=== PATIENT | male | born 1985 | race Caucasian/White ===

== ENCOUNTER → 2021-05-19 14:13 | Outpatient (BNVA) | payer SELFPAY | PROVIDERS: Visit Provider Family Medicine | DX: M25.461 Effusion, right knee (principal) | CPT/HCPCS: 73562 ==

== ENCOUNTER 2021-05-19 15:26 | Emergency (ER) | payer SELFPAY ==
[2021-05-19 15:37] VITALS: BP 165/88; PULSE 79; RESP 18; TEMP 37; O2SAT 98; BMI 29.2
--- NOTE | 2021-05-19 15:49 | XRR_ITS ---
PROCEDURE INFORMATION: Exam: XR Right Knee Exam date and time: 05/19/2021 3:49 PM Age: 36 years old Clinical indication: Swelling or effusion of joint; Knee; Additional info: Redness, swelling TECHNIQUE: Imaging protocol: XR Right knee. Views: 3 views. COMPARISON: CR XR knee RT 3V* [id number] 05/19/2021 2:14 PM FINDINGS: Bones/joints: There is no evidence of fracture or dislocation. There is no osseous lesion. There is no bone erosion or periosteal reaction. The joint spaces are intact. Soft tissues: Normal. XR/XR knee RT 3V* [id number] IMPRESSION: No osseous or articular abnormality
--- NOTE | 2021-05-19 15:50 | ED_ITS ---
Documented by User: [email or web address] Antoine 05/20/21 17:56 HPI - Extremity Problem General: Chief complaint: Extremity Injury, Lower Stated complaint: Redness in right leg, swelling Time Seen by Provider: 05/19/21 15:49 History of Present Illness: HPI Narrative: 36-year-old male patient comes in today with complaints of redness to the right lower leg. There is minimal to no swelling noted to the knee. Patient reports last week he hit his knee against his bed board. On Tuesday it started getting red and more tender and he went to the emergency department in [place] and was diagnosed with cellulitis. Patient reports that he has taken 6 doses of the antibiotic but continues to have some redness and discomfort to the knee so he was seen by Dr. Goodson in [place] who thought he might have gout. So, Dr. Goodson referred him to the ER for further evaluation. Patient was on clindamycin from the emergency department at [place]. Patient does report alcohol use and tobacco smoking. Patient also admits to occasional drug use. Patient denies any IV drug use. Review of Systems General: Reports: 10 or more systems reviewed and unremarkable except in HPI and below Musc: Reports: other (Right knee redness.) [facility] ED PFSH: Social History Smoking and tobacco status: current every day smoker Physical Exam Const: COMMON NORMALS: no acute distress and patient oriented x3 GENERAL APPEARANCE: cooperative HENMT: COMMON NORMALS: normocephalic and Normal external nose present HEAD & SCALP: normal to inspection and normocephalic NOSE: Normal external nose present MOUTH: Normal oral and palatal mucosa present Eye: GENERAL EYE: appearance normal, both eyes and all related structures Neck/C-Spine: COMMON NORMALS: full ROM Chest: COMMONS NORMALS: normal inspection of the chest Resp: COMMON NORMALS: normal respiratory effort EFFORT & INSPECTION: Yes able to speak in complete sentences Cardio: COMMON NORMALS: regular rate and regular rhythm RATE: regular rate RHYTHM: regular rhythm GI: COMMON NORMALS: non-tender Back/Pelvis: COMMON NORMALS: thoracic and lumbar spine normal to inspection Extremity: COMMON NORMALS: normal to inspection Neuro: COMMON NORMALS: patient oriented x3 and moves all extremities Psych: COMMON NORMALS: mental status grossly normal and cooperative Skin: NARRATIVE SKIN EXAM: Redness to the anterior right knee with extension down to the mid calf on the lateral side. Mild induration is noted to an area to the anterior right knee approximately 3 x 2 cm oval Course Vital Signs: Vital signs: Vital Signs Temperature 98.4 F 05/19/21 18:43 Pulse Rate 60 05/19/21 18:43 Respiratory Rate 16 05/19/21 18:43 Blood Pressure 160/96 05/19/21 18:43 Pulse Oximetry 99 05/19/21 18:43 MDM - Extremity (Nontraumatic) Lab Data: Labs: Lab Results 05/19/21 05/19/21 Range/Units 16:22 16:22 WBC 11.4 H (4.0-10.0) 10^3/ uL RBC 4.48 (4.1-5.3) 10^6/u L Hgb 16.3 (11.7-16.6) g/dL Hct 46.5 (42.0-52.0) % MCV 103.8 H (80-94) fl MCH 36.4 H (28.0-34.0) pg MCHC 35.1 (30.0-36.0) g/dL RDW 11.9 L (12.1-15.1) % Plt Count 153 (130-400) 10^3/c mm MPV 12.6 H (7.4-10.4) fL Neut % (Auto) 63.6 % Lymph % (Auto) 23.9 % [place] % (Auto) 9.5 % Eos % (Auto) 1.9 % Baso % (Auto) 0.7 % Neut # (Auto) 7.25 (1.8-7.7) 10^3/u L Lymph # (Auto) 2.7 (0.8-4.8) 10^3/u L [place] # (Auto) 1.1 H (0.2-0.9) 10^3/u L Eos # (Auto) 0.2 (0.0-0.8) 10^3/u L Baso # (Auto) 0.1 (0.0-0.1) 10^3/u L Nucleated RBC % (a uto) 0 % Nucleated RBCs # 0.0 /100WBC Sodium 137 (136-145) mmol/L Potassium 4.1 (3.5-5.1) mmol/L Chloride 103 (98-107) mmol/L Carbon Dioxide 21 L (22-29) mmol/L Anion Gap 17.1 (5-19) BUN 14 (6-20) mg/dL Creatinine 1.1 (0.7-1.2) mg/dL GFR Calculation 75.7 L (90-130) mL/min Glucose 92 (65-115) mg/dL Calculated Osmolal ity 284 L (285-295) mOsm/k g Uric Acid 6.7 (3.4-7.0) mg/dL Calcium 8.6 (8.5-10.5) mg/dL Total Bilirubin 0.8 (0.15-1.2) mg/dL AST 126 H (0-40) U/L ALT 183 H (0-41) U/L Alkaline Phosphata se 111 (40-130) IU/L C-Reactive Protein 15.5 H (0.0-4.9) mg/L Total Protein 8.7 (6.6-8.7) g/dL Albumin 4.3 (3.5-5.2) g/dL Globulin 4.4 (1.3-4.6) g/dL Discharge Plan Discharge Patient Disposition: Home Clinical Impression: Cellulitis Qualifiers: Site of cellulitis: extremity Site of cellulitis of extremity: lower extremity Laterality: right Qualified Code(s): L03.115 - Cellulitis of right lower limb Condition: Stable Prescriptions: New Medrol (Arturo) 4 mg tablets,dose pack See Rx Instructions .ROUTE .COMPLEX Qty: 21 RF: 0 Augmentin 500-125 mg tablet 1 tab PO BID 7 Days Qty: 14 RF: 0 Bactrim DS 800-160 mg tablet 1 tab PO BID 7 Days Qty: 14 RF: 0 colchicine 0.6 mg tablet 0.6 mg PO ONCE Qty: 3 RF: 0 No Action naproxen 500 mg tablet PO RF: 0 clindamycin HCl 300 mg capsule PO RF: 0 Discharge Orders: Discharge ED (Routine); Ordered 05/19/21 Ordered By: Jamie Aranda Discharge Diet: Regular Discharge Activity: Increase activity as tolerated Patient Instructions: Cellulitis (ED), Opioid Safety Activity Restrictions/Additional Instructions: Follow-up with medical provider as directed in 7 to 10 days reevaluation. Take medications as prescribed. Return to the ER or your medical provider if condition worsens. Please read and understand discharge instructions. Thank you for choosing [facility] for your healthcare needs today. Please realize this is an emergency room and that we are providing you with a medical screening exam and this may not be complete and all inclusive of all the testing and or work up that you may need to determine your ailment or severity of your illness. It is very important that you follow up as instructed or that you return to the Emergency Department should you have concerns or if your condition changes or worsens in any way. Sign Out Sign Out Data: Patient Sign Out occurred on 05/19/21 at 17:07. Patient's care was discussed, and care was transferred from to FLO Diaz. Coding Level of Care Code ED Operations Accountant for [place] Fwd Exam Comprehensive Documented by User: FLO Diaz 05/19/21 23:32 HPI - Extremity Problem General: Chief complaint: Extremity Injury, Lower Stated complaint: Redness in right leg, swelling Time Seen by Provider: 05/19/21 15:49 [facility] ED PFSH: Social History Smoking and tobacco status: current every day smoker Course Vital Signs: Vital signs: Vital Signs Temperature 98.4 F 05/19/21 18:43 Pulse Rate 60 05/19/21 18:43 Respiratory Rate 16 05/19/21 18:43 Blood Pressure 160/96 05/19/21 18:43 Pulse Oximetry 99 05/19/21 18:43 MDM - Extremity (Nontraumatic) MDM Narrative: Medical decision making narrative: I took over patient case from Fede Delgado [employer]EL DESIGNER at shift change. He performed the initial history physical exam lab and imaging work-up. Patient has right knee swelling and erythema that occurred couple days after injury where he hit his knee hard into an object. Patient was seen by a provider 2 days ago and he was diagnosed with cellulitis and put on clindamycin. Patient has taken 1 days worth of clindamycin and has not had any improvement. He then was seen by Dr. Goodson earlier today as well and they sent him over here to the ED to get an x-ray and to do some labs. He was suspecting either gout or cellulitis. Vitals stable and patient appears nontoxic and in no acute distress. Exam of the right knee shows erythema, warmth and tenderness to the skin. Exam findings suggestive of cellulitis. X-ray showed no acute findings. White blood cell count 11.4 and the rest of CBC and CMP were unremarkable. Patient's CRP was 15.5 and his uric acid level is normal. Patient was given a IM dose of 1 g of Rocephin while here in the ED. Patient diagnosed with cellulitis. He was discharged home with a prescription for Bactrim, Augmentin and a Medrol Dosepak to help with some of the swelling. Patient given a written prescription of hydrocodone 5/325 quantity 8 mg tablets for pain. I also sent him with a prescription for colchicine for him to take to cover possible acute gout. He was told to follow-up with his PCP in 7 to 10 days reevaluation. Return to ED precautions given. Patient understood agree with plan. Lab Data: Attestation: I reviewed the patient's lab results. Labs: Lab Results 05/19/21 05/19/21 Range/Units 16:22 16:22 WBC 11.4 H (4.0-10.0) 10^3/ uL RBC 4.48 (4.1-5.3) 10^6/u L Hgb 16.3 (11.7-16.6) g/dL Hct 46.5 (42.0-52.0) % MCV 103.8 H (80-94) fl MCH 36.4 H (28.0-34.0) pg MCHC 35.1 (30.0-36.0) g/dL RDW 11.9 L (12.1-15.1) % Plt Count 153 (130-400) 10^3/c mm MPV 12.6 H (7.4-10.4) fL Neut % (Auto) 63.6 % Lymph % (Auto) 23.9 % [place] % (Auto) 9.5 % Eos % (Auto) 1.9 % Baso % (Auto) 0.7 % Neut # (Auto) 7.25 (1.8-7.7) 10^3/u L Lymph # (Auto) 2.7 (0.8-4.8) 10^3/u L [place] # (Auto) 1.1 H (0.2-0.9) 10^3/u L Eos # (Auto) 0.2 (0.0-0.8) 10^3/u L Baso # (Auto) 0.1 (0.0-0.1) 10^3/u L Nucleated RBC % (a uto) 0 % Nucleated RBCs # 0.0 /100WBC Sodium 137 (136-145) mmol/L Potassium 4.1 (3.5-5.1) mmol/L Chloride 103 (98-107) mmol/L Carbon Dioxide 21 L (22-29) mmol/L Anion Gap 17.1 (5-19) BUN 14 (6-20) mg/dL Creatinine 1.1 (0.7-1.2) mg/dL GFR Calculation 75.7 L (90-130) mL/min Glucose 92 (65-115) mg/dL Calculated Osmolal ity 284 L (285-295) mOsm/k g Uric Acid 6.7 (3.4-7.0) mg/dL Calcium 8.6 (8.5-10.5) mg/dL Total Bilirubin 0.8 (0.15-1.2) mg/dL AST 126 H (0-40) U/L ALT 183 H (0-41) U/L Alkaline Phosphata se 111 (40-130) IU/L C-Reactive Protein 15.5 H (0.0-4.9) mg/L Total Protein 8.7 (6.6-8.7) g/dL Albumin 4.3 (3.5-5.2) g/dL Globulin 4.4 (1.3-4.6) g/dL Imaging Data^: Xray Ortho: Attestation: I personally reviewed and interpreted this imaging study as follows: Radiologist's impression: [address] [address] XRay Report Signed Patient: David Rivera Unit #: [id number] : 1985 Age/Sex: 36 / M ADM Date: 05/19/21 Loc: ER Room/Bed: Attending Dr: Ordering Provider/Ordering MD: Donato Delgado NP Date of Service: 05/19/21 Procedure(s): XR knee RT 3V* [id number] Accession Number(s): [id number] Report Number: [id number] PROCEDURE INFORMATION: Exam: XR Right Knee Exam date and time: 05/19/2021 3:49 PM Age: 36 years old Clinical indication: Swelling or effusion of joint; Knee; Additional info: Redness, swelling TECHNIQUE: Imaging protocol: XR Right knee. Views: 3 views. COMPARISON: CR XR knee RT 3V* [id number] 05/19/2021 2:14 PM FINDINGS: Bones/joints: There is no evidence of fracture or dislocation. There is no osseous lesion. There is no bone erosion or periosteal reaction. The joint spaces are intact. Soft tissues: Normal. Discharge Plan Discharge Patient Disposition: Home Clinical Impression: Cellulitis Qualifiers: Site of cellulitis: extremity Site of cellulitis of extremity: lower extremity Laterality: right Qualified Code(s): L03.115 - Cellulitis of right lower limb Condition: Stable Prescriptions: New Medrol (Arturo) 4 mg tablets,dose pack See Rx Instructions .ROUTE .COMPLEX Qty: 21 RF: 0 Augmentin 500-125 mg tablet 1 tab PO BID 7 Days Qty: 14 RF: 0 Bactrim DS 800-160 mg tablet 1 tab PO BID 7 Days Qty: 14 RF: 0 colchicine 0.6 mg tablet 0.6 mg PO ONCE Qty: 3 RF: 0 No Action naproxen 500 mg tablet PO RF: 0 clindamycin HCl 300 mg capsule PO RF: 0 Discharge Orders: Discharge ED (Routine); Ordered 05/19/21 Ordered By: Jamie Aranda Discharge Diet: Regular Discharge Activity: Increase activity as tolerated Patient Instructions: Cellulitis (ED), Opioid Safety Activity Restrictions/Additional Instructions: Follow-up with medical provider as directed in 7 to 10 days reevaluation. Take medications as prescribed. Return to the ER or your medical provider if condition worsens. Please read and understand discharge instructions. Thank you for choosing [facility] for your healthcare needs today. Please realize this is an emergency room and that we are providing you with a medical screening exam and this may not be complete and all inclusive of all the testing and or work up that you may need to determine your ailment or severity of your illness. It is very important that you follow up as instructed or that you return to the Emergency Department should you have concerns or if your condition changes or worsens in any way. Sign Out Sign Out Data: Patient Sign Out occurred on 05/19/21 at 17:07. Patient's care was discussed, and care was transferred from to FLO Diaz. Coding Level of Care Code ED Operations Accountant for [place] Fwd Exam Comprehensive
[2021-05-19] MEDS: ibuprofen 800 mg tablet PO (16:38)
--- NOTE | 2021-05-19 16:41 | PC.NURSE ---
Blood draw by this nurse and taken to lab. 1 attempt.
[2021-05-19 17:06] LABS: Basophils # 0.1 10^3/uL (0.0-0.1); Basophils % 0.7 %; Eosinophils # 0.2 10^3/uL (0.0-0.8); Eosinophils % 1.9 %; Hematocrit 46.5 % (42.0-52.0); Hemoglobin 16.3 g/dL (11.7-16.6); Lymphocytes # 2.7 10^3/uL (0.8-4.8); Lymphocytes % 23.9 %; Mean Corpuscular HGB Conc 35.1 g/dL (30.0-36.0); Mean Corpuscular Hemoglobin 36.4 pg (28.0-34.0); Mean Corpuscular Volume 103.8 fl (80-94); Mean Platelet Volume 12.6 fL (7.4-10.4); Monocytes # 1.1 10^3/uL (0.2-0.9); Monocytes % 9.5 %; Neutrophils # 7.25 10^3/uL (1.8-7.7); Neutrophils % 63.6 %; Nucleated Red Blood Cells % 0 %; Platelet Count 153 10^3/cmm (130-400); Red Blood Count 4.48 10^6/uL (4.1-5.3); Red Cell Distribution Width 11.9 % (12.1-15.1); White Blood Count 11.4 10^3/uL (4.0-10.0)
--- NOTE | 2021-05-19 17:32 | PC.NURSE ---
Patient ambulates to restroom and back without incident. Slight limp noted.
[2021-05-19 18:13] LABS: Alanine Aminotransferase 183 U/L (0-41); Albumin Level 4.3 g/dL (3.5-5.2); Alkaline Phosphatase 111 IU/L (40-130); Anion Gap 17.1 (5-19); Aspartate Amino Transferase 126 U/L (0-40); Blood Urea Nitrogen 14 mg/dL (6-20); C Reactive Protein 15.5 mg/L (0.0-4.9); Calcium 8.6 mg/dL (8.5-10.5); Carbon Dioxide 21 mmol/L (22-29); Chloride 103 mmol/L (98-107); Globulin 4.4 g/dL (1.3-4.6); Glomerular Filtration Rate 75.7 mL/min (90-130); Glucose 92 mg/dL (65-115); Osmolality Calculated 284 mOsm/kg (285-295); Potassium 4.1 mmol/L (3.5-5.1); Sodium 137 mmol/L (136-145); Total Bilirubin 0.8 mg/dL (0.15-1.2); Total Protein 8.7 g/dL (6.6-8.7); Uric Acid 6.7 mg/dL (3.4-7.0)
[2021-05-19] MEDS: cefTRIAXone 1,000 MG in lidocaine 1% 2.1 ML 2.1 MG IM (18:15)
[2021-05-19 18:43] VITALS: BP 160/96; PULSE 60; RESP 16; TEMP 36.9; O2SAT 99
--- NOTE | 2021-05-19 19:06 | PC.NURSE ---
Manoj ROSSI, discontinued colchicine and wrote a prescription for medication.
== END 2021-05-19 19:04 | disposition home or self-care (01) ==
PROVIDERS: Nurse Practitioner Family; Emergency Provider Physician Assistant
DX: F17.210 Nicotine dependence, cigarettes, uncomplicated (principal)
CPT/HCPCS: 73562; 80053; 84550; 85025; 86140; 96372; 99283; J0696

== ENCOUNTER 2021-07-23 22:05 | Emergency (ER) | payer SELFPAY ==
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
[2021-07-23 22:14] VITALS: BP 144/95; PULSE 83; RESP 20; TEMP 36.7; O2SAT 98; BMI 28.0
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
[2021-07-23 22:48] LABS: Basophils # 0.1 10^3/uL (0.0-0.1); Eosinophils # 0.3 10^3/uL (0.0-0.8); Eosinophils % 3.4 %; Hematocrit 45.4 % (42.0-52.0); Hemoglobin 15.8 g/dL (11.7-16.6); Lymphocytes # 2.8 10^3/uL (0.8-4.8); Lymphocytes % 31.6 %; Mean Corpuscular HGB Conc 34.8 g/dL (30.0-36.0); Mean Corpuscular Hemoglobin 36.2 pg (28.0-34.0); Mean Corpuscular Volume 103.9 fl (80-94); Mean Platelet Volume 11.7 fL (7.4-10.4); Monocytes # 0.7 10^3/uL (0.2-0.9); Neutrophils # 4.88 10^3/uL (1.8-7.7); Neutrophils % 54.9 %; Nucleated Red Blood Cells % 0 %; Platelet Count 192 10^3/cmm (130-400); Red Blood Count 4.37 10^6/uL (4.1-5.3); Red Cell Distribution Width 11.6 % (12.1-15.1); White Blood Count 8.9 10^3/uL (4.0-10.0)
[2021-07-23] MEDS: iohexol 350 mg/mL 100 mL Btl IV (22:58)
[2021-07-23] MEDS: lidocaine 1% INJ 20 mL INJECTION (23:11)
[2021-07-23 23:14] LABS: Anion Gap 15.6 (5-19); Blood Urea Nitrogen 9 mg/dL (6-20); Calcium 9.2 mg/dL (8.5-10.5); Carbon Dioxide 24 mmol/L (22-29); Chloride 102 mmol/L (98-107); Glomerular Filtration Rate 109.4 mL/min (90-130); Glucose 108 mg/dL (65-115); Osmolality Calculated 285 mOsm/kg (285-295); Potassium 3.6 mmol/L (3.5-5.1); Sodium 138 mmol/L (136-145)
[2021-07-23 23:24] VITALS: BP 136/92; PULSE 108; RESP 24; O2SAT 98
[2021-07-23 23:32] VITALS: RESP 20; O2SAT 99
[2021-07-23] MEDS: fentaNYL 50 mcg/mL INJ 2mL IVP (23:32)
[2021-07-23 23:38] LABS: INR 1.02 (0.8-1.2)
[2021-07-23 23:55] LABS: Alcohol Level 182 mg/dL (0-10)
[2021-07-24 00:11] LABS: SARS Covid-2 Antigen Negative (Negative)
[2021-07-24] MEDS: tetanus-dipt-pertussis 0.5 mL SDV IM (00:28)
[2021-07-24 00:32] VITALS: BP 144/82; PULSE 106; RESP 24; O2SAT 99
== END 2021-07-24 00:25 | disposition short-term general hospital (02) ==
PROVIDERS: Emergency Medicine; Emergency Provider Emergency Medicine
DX: S12.501A Unspecified nondisplaced fracture of sixth cervical vertebra, initial encounter for closed fracture (principal); S22.03 Fracture of third thoracic vertebra; F17.210 Nicotine dependence, cigarettes, uncomplicated; S01.81XA Laceration without foreign body of other part of head, initial encounter; V59.9XXA Occupant (driver) (passenger) of pick-up truck or van injured in unspecified traffic accident, initial encounter; Z23 Encounter for immunization; Z20.822 Contact with and (suspected) exposure to COVID-19
CPT/HCPCS: 12013; 70450; 70486; 71045; 71275; 72125; 72170; 74174; 80048; 80307; 85025; 85610; 85730; 87426; 90471; 90715; 96374; 99285; J3010; Q9967